=== PATIENT | born 1975 | race American Indian/Alaskan Native ===

== ENCOUNTER 2016-12-17 18:09 | Emergency (ER) | payer MEDICAID ==
[2016-12-17 18:19] VITALS: TEMP 98.7; O2SAT 98
[2016-12-17] MEDS ORDERED: cefTRIAXone (Rocephin) 250 mg Inj IM STA (18:35)
[2016-12-17 19:01] LABS: RBC URINE 2 /hpf (0-3); URINE BILIRUBIN NEGATIVE (NEGATIVE); URINE BLOOD NEGATIVE (NEGATIVE); URINE COLOR Yellow (YELLOW); URINE GLUCOSE (UA) NORMAL (Normal); URINE KETONE NEGATIVE (NEGATIVE); URINE LEUKOCYTE ESTERASE NEG Leu/uL (Negative); URINE PROTEIN NEGATIVE (NEGATIVE); WBC URINE 1 /hpf (0-5)
--- NOTE | 2016-12-17 19:11 | C.PDOC ---
History Of Present Illness Patient presents to ED requesting STD prophylaxis after having unprotected intercourse 3 days ago. Pt is currently asymptomatic. No penile pain, penile discharge, scrotal pain or swelling, abdominal pain, rash, fever, or trauma. Time Seen by Provider: 12/17/16 18:23 Chief Complaint (Nursing): Medical Clearance History Per: Patient History/Exam Limitations: no limitations Onset/Duration Of Symptoms: Days (3) Current Symptoms Are (Timing): Still Present Recent travel outside of the [place]: No Additional History Per: Patient Past Medical History Reviewed: Historical Data, Nursing Documentation, Vital Signs Vital Signs: Last Vital Signs Temp 98.7 F 12/17/16 18:17 Pulse 72 12/17/16 19:20 Resp 18 12/17/16 19:20 BP 124/75 12/17/16 19:20 Pulse Ox 98 12/17/16 20:47 - Medical History PMH: No Chronic Diseases Surgical History: No Surg Hx Family History: States: Unknown Family Hx - Social History Hx Tobacco Use: Yes Hx Alcohol Use: No Hx Substance Use: No - Immunization History Hx Tetanus Toxoid Vaccination: No Hx Influenza Vaccination: No Review Of Systems Except As Marked, All Systems Reviewed And Found Negative. Constitutional: Negative for: Fever, Chills Gastrointestinal: Negative for: Nausea, Vomiting, Abdominal Pain Genitourinary: Negative for: Dysuria, Frequency, Hematuria, Penile Discharge, Scrotal Pain, Rash, Penile Pain Physical Exam - Physical Exam Appears: Non-toxic, No Acute Distress Skin: Normal Color, Warm, Dry Head: Atraumatic, Normacephalic Eye(s): bilateral: Normal Inspection, EOMI Nose: Normal Oral Mucosa: Moist Neck: Normal ROM, Supple Chest: Symmetrical Cardiovascular: Rhythm Regular Respiratory: Normal Breath Sounds, No Accessory Muscle Use Gastrointestinal/Abdominal: Soft, No Tenderness Extremity: Normal ROM Neurological/Psych: Oriented x3, Normal Speech ED Course And Treatment O2 Sat by Pulse Oximetry: 98 (on RA) Pulse Ox Interpretation: Normal Progress Note: Plan: Chlamydia/GC, UA, urine culture. Pt was given Rocephin, and Azithromycin. On re-evaluation, pt is resting comfortably, no acute distress. Pt is being discharged home, and is instructed to follow up with his primary medical doctor or clinic in 2-5 days for further evaluation. Discsussed with pt limitations of ER evaluation and unchecked STDs, therefore instructed to follow up with PMD. Disposition - Disposition Disposition: HOME/ ROUTINE Disposition Time: 19:10 Condition: STABLE Additional Instructions: Follow up with your primary medical doctor or clinic in 2-5 days for further evaluation. Return to the emergency department at any time if symptoms persist or worsen. Instructions: Sexually Transmitted Diseases (ED) Forms: [facility] ([employer]) - Clinical Impression Clinical Impression: Possible exposure to STD - PA / [employer] / Resident Statement MD/DO has reviewed & agrees with the documentation as recorded. - Scribe Statement The provider has reviewed the documentation as recorded by the Scribe Ashley Mcghee All medical record entries made by the Adrianibbilly were at my direction and personally dictated by me. I have reviewed the chart and agree that the record accurately reflects my personal performance of the history, physical exam, medical decision making, and the department course for this patient. I have also personally directed, reviewed, and agree with the discharge instructions and disposition.
[2016-12-17 19:21] VITALS: BP 124/75; PULSE 72; RESP 18
== END 2016-12-17 19:21 | disposition home or self-care (01) ==
LOC: C.ER 18:09
DX: Z04.8 Encounter for examination and observation for other specified reasons (principal)
CPT/HCPCS: 81001; 87086; 87491; 87591; 96372; 99283; J0696